=== PATIENT | male | born 1960 | race Caucasian/White ===

== ENCOUNTER 2016-09-24 10:03 | Outpatient (CLI) ==
[2016-04-19 03:33] VITALS: BMI 23.4
[2016-09-24 10:32] LABS: BASOPHILS # (AUTO) 0.1 K/uL (0-0.2); BASOPHILS % (AUTO) 0.7 % (0.0-3.0); EOSINOPHILS # (AUTO) 0.2 K/ul (0.0-0.7); EOSINOPHILS % (AUTO) 3.3 % (0.0-7.0); HEMATOCRIT 42.5 % (42.0-52.0); HEMOGLOBIN 14.4 g/dl (14.0-18.0); IMMATURE GRANULOCYTE % (AUTO) 0.3 % (0.0-5.0); LYMPHOCYTES # (AUTO) 2.3 K/uL (0.60-3.4); MEAN CORPUSCULAR HEMOGLOBIN 30.4 pg (27.0-31.0); MEAN CORPUSCULAR HGB CONC 33.9 (31.8-35.4); MEAN CORPUSCULAR VOLUME 89.9 fl (80.0-94.0); MONOCYTES # (AUTO) 0.5 K/uL (0.4-2.0); MONOCYTES % (AUTO) 6.7 (0-10); NEUTROPHILS # (AUTO) 4.1 K/ul (2.0-6.9); PLATELET COUNT 234 10^3/uL (140-440); RED BLOOD COUNT 4.73 10^6/ul (4.70-6.10); WHITE BLOOD COUNT 7.21 K/ul (4.2-10.2)
--- NOTE | 2016-09-24 11:00 | DI ---
EXAM: Chest two views HISTORY: Abnormal weight loss COMPARISON: CT chest 12/11/2015 TECHNIQUE: Two views of the chest were performed FINDINGS: There is ill-defined nodular density and/or infiltrate left upper lung that is new from 0 12/11/2015. Lungs are hyperinflated. Small bilateral pleural effusions with left basilar atelectasis and/or consolidation. There is no pleural effusion or pneumothorax. The heart is normal in size. The mediastinal contour is normal. There are no acute abnormalities of the bones. IMPRESSION: 1. Unexpected finding: New ill-defined nodular density and/or infiltrate left upper lung. CT ches t is recommended for further evaluation given patient's symptoms. 2. Small bilateral pleural effusions with left basilar atelectasis and/or pneumonia. 3. Chronic obstructive pulmonary disease
[2016-09-24 14:11] LABS: ALBUMIN 3.9 g/dL (3.4-5.0); ALBUMIN/GLOBULIN RATIO 1.03; ANION GAP 15.5; BILIRUBIN,TOTAL 0.62 mg/dL (0.00-1.20); BUN/CREATININE RATIO 17.05; CALCIUM 9.8 mg/dL (8.2-10.2); CREATININE 1.29 mg/dL (0.60-1.10); POTASSIUM 4.5 mmol/L (3.5-5.1); TOTAL PROTEIN 7.7 g/dL (6.4-8.2)
== END 2016-09-24 10:04 | disposition home or self-care (01) ==
LOC: RAD 10:03
PROVIDERS: ATTEND Family Medicine
DX: R63.4 Abnormal weight loss (principal)
CPT/HCPCS: 36415; 80053; 84439; 84443; 85025

== ENCOUNTER 2016-09-25 08:42 | Outpatient (CLI) ==
[2016-04-19 03:33] VITALS: BMI 23.4
--- NOTE | 2016-09-25 09:57 | CT ---
EXAM: CT of the chest without contrast History: Follow-up lung nodule. Comparison: Chest radiograph 09/24/2016, chest CT 12/11/2015 Technique: Multiplanar CT images through the thorax were obtained without the administration of IV contrast Findings: Heart size is within normal limits. Trace pericardial fluid. Coronary calcifications. Great vessels are grossly unremarkable on this noncontrast study. No pathologically enlarged axilla ry lymph nodes. Stable borderline enlarged pretracheal mediastinal lymph node. Calcified right dayo r lymph nodes. There is a new 1.2 cm x 0.8 cm spiculated nodule within the left lung apex with pleu ral tail. There is a new irregular pleural-based opacity within the left upper hemithorax measuring roughly 1.7 cm x 2.8 cm. No pneumothorax. Small partially loculated left pleural effusion and a n ew area of left lower lung atelectasis, infiltrate or scarring. Mild emphysema again noted. The within the visualized upper abdomen, calcified granulomas within the liver and spleen. Cholelit hiasis. No acute osseous abnormalities. Impression: 1. New spiculated left apical nodule and new spiculated left upper hemithorax pleural based opacity concerning for malignancy. Further evaluation recommended. 2. New small partially loculated left pleural effusion and a new area of left lower lung atelectasi s, infiltrate or scarring. 3. Mild emphysema again noted. 4. Cholelithiasis.
== END 2016-09-25 08:43 ==
LOC: RAD 08:42
PROVIDERS: ATTEND Family Medicine
DX: R91.1 Solitary pulmonary nodule (principal)

== ENCOUNTER 2016-09-30 13:21 | Outpatient (CLI) ==
[2016-04-19 03:33] VITALS: BMI 23.4
[2016-09-30 13:37] LABS: OCCULT BLOOD INTERNAL QC 1 INTERNAL QC VALID; OCCULT BLOOD INTERNAL QC 2 INTERNAL QC VALID; OCCULT BLOOD INTERNAL QC 3 INTERNAL QC VALID; OCCULT BLOOD SAMPLE 1 NEGATIVE (NEGATIVE); OCCULT BLOOD SAMPLE 2 NEGATIVE (NEGATIVE); OCCULT BLOOD SAMPLE 3 NO SPECIMEN RECEIVED (NEGATIVE)
== END 2016-09-30 13:22 | disposition home or self-care (01) ==
LOC: LAB 13:21
PROVIDERS: ATTEND Family Medicine
DX: R63.4 Abnormal weight loss (principal)
CPT/HCPCS: 82272

== ENCOUNTER 2017-06-18 16:36 | Emergency (ER) ==
[2017-06-18 16:41] VITALS: BP 149/87; TEMP 98.3; BMI 24.0
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
== END 2017-06-18 18:22 | disposition home or self-care (01) ==
LOC: ED 16:36
DX: M54.2 Cervicalgia (principal); R91.1 Solitary pulmonary nodule; M54.9 Dorsalgia, unspecified; W22.8XXA Striking against or struck by other objects, initial encounter; F17.210 Nicotine dependence, cigarettes, uncomplicated
CPT/HCPCS: 99283

== ENCOUNTER 2017-07-04 21:53 | Outpatient (CLI) ==
[2017-07-04 22:30] VITALS: BMI 24.7
== END 2017-07-04 21:54 | disposition left against medical advice (07) ==
LOC: AMBL 21:53
PROVIDERS: ATTEND Emergency Medicine
DX: S61.512A Laceration without foreign body of left wrist, initial encounter (principal); W01.198A Fall on same level from slipping, tripping and stumbling with subsequent striking against other object, initial encounter

== ENCOUNTER 2017-07-04 22:20 | Emergency (ER) ==
[2017-07-04] MEDS ORDERED: BOOSTRIX IM ONE (22:27)
[2017-07-04 22:30] VITALS: BP 157/94; TEMP 99.4; BMI 24.7
--- NOTE | 2017-07-04 22:33 | ED.PDOC ---
General ED Provider: Dr. ESEQUIEL BACH Chief Complaint: Laceration Stated Complaint: Fell in bath room, tripped and fell, hurting left shoulder and head, has cut to left wrist. Time Seen by Physician: 22:36 Primary Care Provider: LONG CAMPUZANO Nursing and Triage Documentation Reviewed and Agree: Yes Trauma/Injury Complaint Exam - Head Injury Complaint/Exam Location of Pain: Reports: Right, Left, Forehead Mechanism of Injury: Reports: Trauma Symptoms Are: Still present Initial Severity: Mild Current Severity: Mild Character: Reports: Dull Aggravating: Reports: None Alleviating: Reports: None Associated Signs and Symptoms: Denies: Confusion, Memory loss, Seizure, Epistaxis, Dental malocclusion, Neck pain, Nausea, Vomiting Loss of Consciousness: None SDH Risk Factors: Present: None Cervical Spine Injury Risk Factors: Present: None Related Surgical History: Reports: None Immobilization Removed Post Exam: No Head Injury Findings: Present: Normal findings Focal Weakness: Present: None Focal Sensory Loss: Present: None Gait: Normal Gag Reflex Present: Yes Finger to Nose: Normal Rhomberg Test Positive: No Babinski Sign: Negative Right, Negative Left Differential Diagnoses: Trauma Review of Systems - Review Of Systems Constitutional: Reports: Weakness Eyes: Reports: No symptoms Ears, Nose, Mouth, Throat: Reports: No symptoms Respiratory: Reports: No symptoms Cardiac: Reports: No symptoms GI: Reports: No symptoms : Reports: No symptoms Musculoskeletal: Reports: Joint pain Skin: Reports: No symptoms Neurological: Reports: No symptoms Endocrine: Reports: No symptoms Hematologic/Lymphatic: Reports: No symptoms All Other Systems: Reviewed and Negative Past Medical History - Past Medical History Previously Healthy: No Endocrine: Reports: Dyslipidemia Cardiovascular: Reports: CAD, [place], Hypertension Respiratory: Reports: None Hematological: Reports: None Gastrointestinal: Reports: None Genitourinary: Reports: None Neuro/Psych: Reports: None Musculoskeletal: Reports: None Cancer: Reports: None - Surgical History General Surgical History: Reports: Orthopedic - Family History Family History: Reports: Unknown - Social History Smoking Status: Current every day smoker Smoking Cessation Counseling Time: > 10 min Hx Substance Use: No Alcohol Screening: None Physical Exam - Physical Exam Appearance: Well-appearing, No pain distress, Well-nourished Eyes: ROBERTO, EOMI, Conjunctiva clear ENT: Ears normal, Nose normal, Oropharynx normal Respiratory: Airway patent, Breath sounds clear, Breath sounds equal, Respirations nonlabored Cardiovascular: RRR, Pulses normal, No rub, No murmur GI/: Soft, Nontender, No masses, Bowel sounds normal, No Organomegaly Musculoskeletal: Normal strength, ROM intact, No edema, No calf tenderness Skin: Warm, Dry, Normal color Neurological: Sensation intact, Motor intact, Reflexes intact, Cranial nerves intact, Alert, Oriented Psychiatric: Affect appropriate, Mood appropriate Critical Care Note - Critical Care Note Total Time (mins): 0 Course - Course Hematology/Chemistry: 07/04/17 22:51 07/04/17 22:51 Orders, Labs, Meds: Lab Review 07/04/17 11 22:51 22:51 WBC 7.67 RBC 4.05 L Hgb 13.0 L Hct 37.9 L MCV 93.6 MCH 32.1 H MCHC 34.3 RDW Coeff of Vinay 13.2 Plt Count 191 Immature Gran % (Auto) 0.4 Neut % (Auto) 49.4 Lymph % (Auto) 36.9 [place] % (Auto) 6.6 Eos % (Auto) 5.9 Baso % (Auto) 0.8 Immature Gran # (Auto) 0.0 Neut # 3.8 Lymph # 2.8 [place]ding # 0.5 Eos # 0.5 Baso # 0.1 Sodium 143 Potassium 3.8 Chloride 105 Carbon Dioxide 29 Anion Gap 12.8 BUN 17 Creatinine 1.37 H Estimated GFR (MDRD) 53.00 BUN/Creatinine Ratio 12.40 Glucose 79 Calcium 9.1 Total Bilirubin 0.52 AST 32 ALT 29 Alkaline Phosphatase 56 Total Protein 7.1 Albumin 3.5 Globulin 3.6 Albumin/Globulin Ratio 0.97 Orders Category Date Time Status CBC W/ AUTO DIFF Stat LAB 07/04/17 22:51 Completed CMP [COMPREHENSIVE METABOLIC PANEL] Stat LAB 07/04/17 22:51 Completed Diphth,Pertuss(Acell),Tet Vac [Boostrix] MEDS 07/04/17 22:27 Discontinued 0.5 ml IM .ONCE ONE CT HEAD W/O CONTRAST Stat RADS 07/04/17 22:27 Completed SHOULDER, LEFT MIN 2V Stat RADS 07/04/17 22:27 Completed WRIST, LEFT 3 VIEWS Stat RADS 07/04/17 22:27 Completed Medications Discontinued Medications Generic Name Dose Route Start Last Admin Trade Name Freq PRN Reason Stop Dose Admin Diphtheria/Pertussis/Tetanus Vacc 0.5 ml 07/04/17 22:27 07/04/17 22:35 Boostrix IM 07/04/17 22:28 0.5 ml .ONCE ONE Administration Vital Signs: Temp Pulse Resp BP Pulse Ox 07/04/17 22:20 99.4 F 67 20 157/94 H 97 Departure - Departure Time of Disposition: 19:57 Disposition: HOME SELF-CARE Discharge Problem: Laceration - injury Instructions: Fall Prevention for Older Adults (ED) Condition: Good Pt referred to PMD for follow-up: Yes Additional Instructions: keep f/u with PMD Fall risk discussed Allergies/Adverse Reactions: Allergies No Known Drug Allergies Adverse Reaction (Verified 07/04/17 22:29) Home Medications: Ambulatory Orders Clonazepam [Klonopin] 1 mg PO TID 12/11/15 Dabigatran Etexilate Mesylate [Pradaxa] 75 mg PO DAILY 12/11/15 Furosemide [Lasix Tab] 20 mg PO QDAC 12/11/15 Hydrocodone/Acetaminophen [Lortab 7.5-325 mg Tablet] 1 each PO TID PRN 12/11/15 Levetiracetam [Keppra] 500 mg PO BID 12/11/15 Disposition Discussed With: Patient, Family
[2017-07-04 22:54] LABS: BASOPHILS # (AUTO) 0.1 K/uL (0-0.2); BASOPHILS % (AUTO) 0.8 % (0.0-3.0); EOSINOPHILS # (AUTO) 0.5 K/ul (0.0-0.7); EOSINOPHILS % (AUTO) 5.9 % (0.0-7.0); HEMATOCRIT 37.9 % (42.0-52.0); IMMATURE GRANULOCYTE % (AUTO) 0.4 % (0.0-5.0); LYMPHOCYTES # (AUTO) 2.8 K/uL (0.60-3.4); LYMPHOCYTES % (AUTO) 36.9 (10.0-50.0); MEAN CORPUSCULAR HEMOGLOBIN 32.1 pg (27.0-31.0); MEAN CORPUSCULAR HGB CONC 34.3 (31.8-35.4); MEAN CORPUSCULAR VOLUME 93.6 fl (80.0-94.0); MONOCYTES # (AUTO) 0.5 K/uL (0.4-2.0); MONOCYTES % (AUTO) 6.6 (0-10); NEUTROPHILS # (AUTO) 3.8 K/ul (2.0-6.9); NEUTROPHILS % (AUTO) 49.4; PLATELET COUNT 191 10^3/uL (140-440); RED BLOOD COUNT 4.05 10^6/ul (4.70-6.10); WHITE BLOOD COUNT 7.67 K/ul (4.2-10.2)
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
--- NOTE | 2017-07-04 23:05 | DI ---
Exam: Left wrist three-view History: Injury and pain Findings / impression: No acute bony or articular abnormality of the left wrist. Negative exam.
--- NOTE | 2017-07-04 23:06 | DI ---
Exam: Shoulder three-view History: Injury and pain Findings / impression: No bony or articular abnormality of the left glenohumeral joint or acromiocla vicular joint. Negative exam.
[2017-07-04 23:13] LABS: ALBUMIN 3.5 g/dL (3.4-5.0); ALBUMIN/GLOBULIN RATIO 0.97; ANION GAP 12.8; BILIRUBIN,TOTAL 0.52 mg/dL (0.00-1.20); BUN/CREATININE RATIO 12.4; CALCIUM 9.1 mg/dL (8.2-10.2); CREATININE 1.37 mg/dL (0.60-1.10); POTASSIUM 3.8 mmol/L (3.5-5.1); TOTAL PROTEIN 7.1 g/dL (6.4-8.2)
== END 2017-07-04 23:20 | disposition home or self-care (01) ==
LOC: ED 22:20
DX: S61.512A Laceration without foreign body of left wrist, initial encounter (principal); S09.90XA Unspecified injury of head, initial encounter; S49.92XA Unspecified injury of left shoulder and upper arm, initial encounter; F17.210 Nicotine dependence, cigarettes, uncomplicated; W01.0XXA Fall on same level from slipping, tripping and stumbling without subsequent striking against object, initial encounter
CPT/HCPCS: 36415; 80053; 85025; 90471; 99283

== ENCOUNTER 2017-07-24 17:31 | Emergency (ER) ==
[2017-07-24 17:40] VITALS: BP 134/75; TEMP 98.3; BMI 24.8
[2017-07-24] MEDS ORDERED: ROCEPHIN IM STA (18:35)
[2017-07-24] MEDS ORDERED: DUONEB NEB STA (18:35)
[2017-07-24] MEDS ORDERED: LIDOCAINE HCL 1% SDV SUBCUT STA (18:35)
[2017-07-24] MEDS ORDERED: ZITHROMAX PO STA (18:36)
[2017-07-24] MEDS ORDERED: DECADRON 4 MG/ML SDV IM STA (18:36)
--- NOTE | 2017-07-24 18:39 | ED.PDOC ---
General ED Provider: Dr. KEVIN ARIAS Chief Complaint: Non-specific Complaint Stated Complaint: cough, wheez Time Seen by Physician: 17:40 Mode of Arrival: Walk-In Information Source: Patient Exam Limitations: No limitations Primary Care Provider: LONG CAMPUZANO Nursing and Triage Documentation Reviewed and Agree: Yes Respiratory Complaint Exam - Respiratory Complaint/Exam Symptoms Are: Still present Timing: Intermittent Initial Severity: Mild Current Severity: Mild Location: Throat Aggravating: Reports: None Alleviating: Reports: None Review of Systems - Review Of Systems Constitutional: Reports: No symptoms Eyes: Reports: No symptoms Ears, Nose, Mouth, Throat: Reports: No symptoms Respiratory: Reports: Cough Cardiac: Reports: No symptoms GI: Reports: No symptoms : Reports: No symptoms Musculoskeletal: Reports: No symptoms Skin: Reports: No symptoms Neurological: Reports: No symptoms Endocrine: Reports: No symptoms Hematologic/Lymphatic: Reports: No symptoms All Other Systems: Reviewed and Negative Past Medical History - Past Medical History Previously Healthy: No Endocrine: Reports: Dyslipidemia Cardiovascular: Reports: CAD, [place], Hypertension Respiratory: Reports: None Hematological: Reports: None Gastrointestinal: Reports: None Genitourinary: Reports: None Neuro/Psych: Reports: None Musculoskeletal: Reports: None Cancer: Reports: None - Surgical History General Surgical History: Reports: Orthopedic - Family History Family History: Reports: Unknown - Social History Smoking Status: Current every day smoker, Heavy tobacco smoker Hx Substance Use: No Alcohol Screening: None Physical Exam - Physical Exam Appearance: Well-appearing, No pain distress, Well-nourished Eyes: ROBERTO, EOMI, Conjunctiva clear ENT: Ears normal, Nose normal, Oropharynx normal Respiratory: Airway patent, Breath sounds clear, Breath sounds equal, Respirations nonlabored Cardiovascular: RRR, Pulses normal, No rub, No murmur GI/: Soft, Nontender, No masses, Bowel sounds normal, No Organomegaly Musculoskeletal: Normal strength, ROM intact, No edema, No calf tenderness Skin: Warm, Dry, Normal color Neurological: Sensation intact, Motor intact, Reflexes intact, Cranial nerves intact, Alert, Oriented Psychiatric: Affect appropriate, Mood appropriate Critical Care Note - Critical Care Note Total Time (mins): 0 Course - Course Orders, Labs, Meds: Orders Category Date Time Status EKG-(ED ONLY) Stat CARDIO 07/24/17 18:09 Ordered NEBULIZER TREATMENT Stat CARDIO 07/24/17 18:35 Ordered CBC W/ AUTO DIFF Stat LAB 07/24/17 18:22 Received COMPREHENSIVE METABOLIC PANEL Stat LAB 07/24/17 18:22 Received CREATINE KINASE Stat LAB 07/24/17 18:22 Received RAPID FLU A/B Stat LAB 07/24/17 18:09 Uncollected STREP SCREEN Stat LAB 07/24/17 18:09 Uncollected TROPONIN I Stat LAB 07/24/17 18:22 Received Azithromycin [Zithromax] MEDS 07/24/17 18:36 Stat 500 mg PO ONCE STA Ceftriaxone Sodium [Rocephin] MEDS 07/24/17 18:35 Stat 1 gm IM ONCE STA Dexamethasone 4 mg/ml Inj [Decadron 4 mg/ml Sdv] MEDS 07/24/17 18:36 Stat 4 mg IM ONCE STA Ipratropium/Albuterol Neb [Duoneb] MEDS 07/24/17 18:35 Stat 1 vial NEB ONCE STA Lidocaine HCl/Pf [Lidocaine HCl 1% Sdv] MEDS 07/24/17 18:35 Stat 5 ml SUBCUT ONCE STA CHEST, 2 VIEWS PA & LAT Stat RADS 07/24/17 18:08 Taken Medications Discontinued Medications Generic Name Dose Route Start Last Admin Trade Name Freq PRN Reason Stop Dose Admin Albuterol/Ipratropium 1 vial 07/24/17 18:35 Duoneb NEB 07/24/17 18:36 ONCE STA Azithromycin 500 mg 07/24/17 18:36 Zithromax PO 07/24/17 18:37 ONCE STA Ceftriaxone Sodium 1 gm 07/24/17 18:35 Rocephin IM 07/24/17 18:36 ONCE STA Dexamethasone Sodium Phosphate 4 mg 07/24/17 18:36 Decadron 4 Mg/Ml Sdv IM 07/24/17 18:37 ONCE STA Lidocaine HCl 5 ml 07/24/17 18:35 Lidocaine Hcl 1% Sdv SUBCUT 07/24/17 18:36 ONCE STA Vital Signs: Temp Pulse Resp BP Pulse Ox 07/24/17 17:32 98.3 F 61 20 134/75 97 Departure - Departure Time of Disposition: 18:39 Disposition: HOME SELF-CARE Discharge Problem: Bronchitis Instructions: Bronchospasm (ED), Wheezing (ED), How Your Lungs Work (ED), Acute Bronchitis (ED), COPD (Chronic Obstructive Pulmonary Disease) (ED), Chronic Bronchitis (ED) Condition: Good Pt referred to PMD for follow-up: Yes Allergies/Adverse Reactions: Allergies No Known Drug Allergies Adverse Reaction (Verified 07/04/17 22:29) Home Medications: Ambulatory Orders Clonazepam [Klonopin] 1 mg PO TID 12/11/15 Dabigatran Etexilate Mesylate [Pradaxa] 75 mg PO DAILY 12/11/15 Furosemide [Lasix Tab] 20 mg PO QDAC 12/11/15 Hydrocodone/Acetaminophen [Lortab 7.5-325 mg Tablet] 1 each PO TID PRN 12/11/15 Levetiracetam [Keppra] 500 mg PO BID 12/11/15
[2017-07-24 18:52] LABS: ALBUMIN 3.6 g/dL (3.4-5.0); ALBUMIN/GLOBULIN RATIO 0.97; ANION GAP 12.8; BILIRUBIN,TOTAL 0.34 mg/dL (0.00-1.20); BUN/CREATININE RATIO 13.12; CALCIUM 9.3 mg/dL (8.2-10.2); CREATININE 1.6 mg/dL (0.60-1.10); POTASSIUM 4.8 mmol/L (3.5-5.1); TOTAL PROTEIN 7.3 g/dL (6.4-8.2); TROPONIN I 0.037 ng/ml (0.0000-0.4000)
[2017-07-24 18:55] LABS: BASOPHILS # (AUTO) 0.1 K/uL (0-0.2); BASOPHILS % (AUTO) 0.7 % (0.0-3.0); EOSINOPHILS # (AUTO) 0.4 K/ul (0.0-0.7); EOSINOPHILS % (AUTO) 4.4 % (0.0-7.0); HEMATOCRIT 38.9 % (42.0-52.0); HEMOGLOBIN 13.1 g/dl (14.0-18.0); IMMATURE GRANULOCYTE % (AUTO) 0.4 % (0.0-5.0); LYMPHOCYTES # (AUTO) 2.7 K/uL (0.60-3.4); LYMPHOCYTES % (AUTO) 32.4 (10.0-50.0); MEAN CORPUSCULAR HEMOGLOBIN 31.4 pg (27.0-31.0); MEAN CORPUSCULAR HGB CONC 33.7 (31.8-35.4); MEAN CORPUSCULAR VOLUME 93.3 fl (80.0-94.0); MONOCYTES # (AUTO) 0.6 K/uL (0.4-2.0); MONOCYTES % (AUTO) 7.2 (0-10); NEUTROPHILS # (AUTO) 4.5 K/ul (2.0-6.9); NEUTROPHILS % (AUTO) 54.9; PLATELET COUNT 190 10^3/uL (140-440); RED BLOOD COUNT 4.17 10^6/ul (4.70-6.10); WHITE BLOOD COUNT 8.25 K/ul (4.2-10.2)
--- NOTE | 2017-07-24 18:58 | DI ---
EXAM: Chest two views HISTORY: Cough COMPARISON: 09/24/2016 TECHNIQUE: Two views of the chest were performed FINDINGS: No airspace consolidation. Subtle opacity in the left upper lobe appears decreased. Have blunting of the costophrenic angles. No pneumothorax. The heart is normal in size. The mediastinal contour is normal. There are no acute abnormalities of the bones. IMPRESSION: 1. Blunting costophrenic angles may represent small pleural effusions and/or pleural parenchymal sca rring. No airspace consolidation. 2. Subtle opacity in the left upper lobe appears decreased. Please see CT chest 09/25/2016. CT foll ow-up recommended. Report faxed
== END 2017-07-24 19:12 | disposition home or self-care (01) ==
LOC: ED 17:31
DX: J40 Bronchitis, not specified as acute or chronic (principal); I25.2 Old myocardial infarction; I10 Essential (primary) hypertension; I25.10 Atherosclerotic heart disease of native coronary artery without angina pectoris; F17.210 Nicotine dependence, cigarettes, uncomplicated; E78.5 Hyperlipidemia, unspecified
CPT/HCPCS: 36415; 80053; 82550; 84484; 85025; 93005; 93010; 94640; 96372; 99283

== ENCOUNTER 2017-07-28 10:41 | Outpatient (CLI) ==
[2017-07-28 11:07] LABS: BASOPHILS # (AUTO) 0.1 K/uL (0-0.2); BASOPHILS % (AUTO) 0.6 % (0.0-3.0); EOSINOPHILS # (AUTO) 0.1 K/ul (0.0-0.7); EOSINOPHILS % (AUTO) 1.5 % (0.0-7.0); HEMATOCRIT 38.1 % (42.0-52.0); HEMOGLOBIN 12.9 g/dl (14.0-18.0); IMMATURE GRANULOCYTE % (AUTO) 0.7 % (0.0-5.0); LYMPHOCYTES # (AUTO) 1.5 K/uL (0.60-3.4); LYMPHOCYTES % (AUTO) 17.1 (10.0-50.0); MEAN CORPUSCULAR HEMOGLOBIN 31.7 pg (27.0-31.0); MEAN CORPUSCULAR HGB CONC 33.9 (31.8-35.4); MEAN CORPUSCULAR VOLUME 93.6 fl (80.0-94.0); MONOCYTES # (AUTO) 0.6 K/uL (0.4-2.0); MONOCYTES % (AUTO) 6.6 (0-10); NEUTROPHILS # (AUTO) 6.5 K/ul (2.0-6.9); NEUTROPHILS % (AUTO) 73.5; PLATELET COUNT 157 10^3/uL (140-440); RED BLOOD COUNT 4.07 10^6/ul (4.70-6.10); WHITE BLOOD COUNT 8.83 K/ul (4.2-10.2)
[2017-07-28 11:46] LABS: ALBUMIN 3.2 g/dL (3.4-5.0); ALBUMIN/GLOBULIN RATIO 0.89; ANION GAP 10.4; BILIRUBIN,TOTAL 0.6 mg/dL (0.00-1.20); BUN/CREATININE RATIO 9.35; CALCIUM 9.3 mg/dL (8.2-10.2); CHOL/HDL RATIO 3.5 (4.5-6.4); CREATININE 1.39 mg/dL (0.60-1.10); POTASSIUM 4.4 mmol/L (3.5-5.1); TOTAL PROTEIN 6.8 g/dL (6.4-8.2)
== END 2017-07-28 10:42 | disposition home or self-care (01) ==
LOC: LAB 10:41
PROVIDERS: ATTEND Family Medicine
DX: I10 Essential (primary) hypertension (principal); Z12.5 Encounter for screening for malignant neoplasm of prostate
CPT/HCPCS: 36415; 80053; 80061; 85025

== ENCOUNTER 2017-11-12 21:27 | Emergency (ER) ==
[2017-11-12] MEDS ORDERED: BACTRIM DS 800/160 MG PO STA (21:47)
--- NOTE | 2017-11-12 21:48 | ED.PDOC ---
General ED Provider: Dr. LONG ANG Chief Complaint: Bite Stated Complaint: Patient is a 57 year old male who comes to the ER with left forearm paiin. He also states he ran out of his medications and has had several heart attacks in the past. He was admitted recently for possible stroke but signed out AMA. States he has problems with balance each time he tries to walk. He states that he has been having chest pains off an on the last time was yesterday. Denies any chest pain at this time. State has renal failure too and that his urine has turned dark. He also states his doctor Fired him for missing 3 appointment in a raw. Time Seen by Physician: 22:00 Mode of Arrival: Walk-In Information Source: Patient Exam Limitations: No limitations Seen Within Last 72 Hours for Same Complaint By: ED Nursing and Triage Documentation Reviewed and Agree: Yes Reviewed sepsis parameters & appropriate labs ordered?: No System Inflammatory Response Syndrome: Not Applicable Sepsis Protocol: For patient's 13 years and over: Temp is 96.8 and below OR 101 and greater Pulse >90 BPM Resp >20/minute Acutely Altered Mental Status Are patient's symptoms suggestive of a new infection, such as: -Pneumonia -Skin, Soft Tissue -Endocarditis -UTI -Bone, Joint Infection -Implantable Device -Acute Abdominal Infection -Wound Infection -Meningitis -Blood Stream Catheter Infection -Unknown System Inflammatory Response Syndrome: Not Applicable Skin Complaint Exam - Skin/Soft Tissue Complaint/Exam Onset/Duration: 3 days Symptoms Are: Still present Timing: Constant Initial Severity: Moderate Current Severity: Mild Character: Reports: Redness, Swelling, Raised, Painful Aggravating: Reports: Touch Associated Signs and Symptoms: Reports: Tenderness, Red streaks Related History: Reports: Insect bite/sting Recent Exposure to Others w/Similar Symptoms: No Skin Findings: Present: Skin lesion (Left forarm ) Joint Tenderness Present: No Differential Diagnoses: Abscess, Cellulitis Review of Systems - Review Of Systems Constitutional: Reports: No symptoms Eyes: Reports: No symptoms Ears, Nose, Mouth, Throat: Reports: No symptoms Respiratory: Reports: No symptoms Cardiac: Reports: No symptoms. Denies: Chest pain GI: Reports: No symptoms : Reports: No symptoms Musculoskeletal: Reports: No symptoms Skin: Reports: Lesions (left forearm ) Neurological: Reports: Other (balance problems ) Endocrine: Reports: No symptoms Hematologic/Lymphatic: Reports: No symptoms All Other Systems: Reviewed and Negative Past Medical History - Past Medical History Previously Healthy: No Endocrine: Reports: Dyslipidemia Cardiovascular: Reports: CAD, IA, Hypertension, CHF Respiratory: Reports: Asthma Hematological: Reports: None Gastrointestinal: Reports: GERD, Other (hepatitis C) Genitourinary: Reports: CKD Neuro/Psych: Reports: Migraine, Seizure, Depression, Schizophrenia Musculoskeletal: Reports: Arthritis, Back Pain Cancer: Reports: None - Surgical History General Surgical History: Reports: Orthopedic - Family History Family History: Reports: Unknown - Social History Smoking Status: Current every day smoker, Heavy tobacco smoker Hx Substance Use: Yes ("ALCOHOL AND DRUGS") Alcohol Screening: None Lives: With family - Immunizations Tetanus Shot up to Date: (UNKNOWN) Physical Exam - Physical Exam Appearance: Well-appearing Ill-appearing: Mild Pain Distress: Mild Eyes: ROBERTO, EOMI, Conjunctiva clear ENT: Ears normal, Nose normal, Oropharynx normal Neck: Supple Respiratory: Airway patent, Breath sounds clear, Breath sounds equal, Respirations nonlabored Cardiovascular: RRR, Pulses normal, No rub, No murmur GI/: Soft, Nontender, No masses, Bowel sounds normal, No Organomegaly Musculoskeletal: Normal strength, ROM intact, No edema, No calf tenderness Neurological: Sensation intact Psychiatric: Anxious Interpretation - Radiology Interpretation Radiology Interpretation By: Radiologist Radiology Results: No acute changes (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) Exam Interpreted: CT Scan - EKG Interpretation Time of EKG #1: 22:19 Rate: Normal Rhythm: Sinus Ectopy: None [place]: Left ST Segment: Normal Interpretation: old inferior infarct EKG Comparison: Other (Incomplete BBB) Critical Care Note - Critical Care Note Total Time (mins): 0 Course - Course Hematology/Chemistry: 11/12/17 22:15 11/12/17 22:25 Orders, Labs, Meds: Lab Review 11/12/17 11/12/17 11/12/17 22:15 22:25 22:45 WBC 6.06 RBC 4.43 L Hgb 14.0 Hct 40.3 L MCV 91.0 MCH 31.6 H MCHC 34.7 RDW Coeff of Vinay 13.2 Plt Count 133 L Immature Gran % (Auto) 0.3 Neut % (Auto) 43.2 Lymph % (Auto) 39.9 [place] % (Auto) 11.6 H Eos % (Auto) 4.3 Baso % (Auto) 0.7 Immature Gran # (Auto) 0.0 Neut # (Auto) 2.6 Lymph # (Auto) 2.4 [place] # (Auto) 0.7 Eos # (Auto) 0.3 Baso # (Auto) 0.0 Sodium 138 Potassium 4.4 Chloride 101 Carbon Dioxide 30 Anion Gap 11.4 BUN 18 Creatinine 1.45 H Estimated GFR (MDRD) 50.00 BUN/Creatinine Ratio 12.41 Glucose 73 Calcium 9.3 Total Bilirubin 0.5 AST 43 H ALT 39 Alkaline Phosphatase 46 L Total Creatine Kinase 24 Troponin I 0.0190 Total Protein 7.1 Albumin 3.6 Globulin 3.5 Albumin/Globulin Ratio 1.03 Urine Color Yellow Urine Clarity Clear Urine pH 7.5 Ur Specific [place] 1.015 Urine Protein Negative Urine Glucose (UA) Negative Urine Ketones Negative Urine Blood Negative Urine Nitrite Negative Urine Bilirubin Negative Urine Urobilinogen 0.2 Ur Leukocyte Esterase Negative Orders Category Date Time Status CBC W/ AUTO DIFF Stat LAB 11/12/17 22:15 Completed COMPREHENSIVE METABOLIC PANEL Stat LAB 11/12/17 22:25 Completed CREATINE KINASE Stat LAB 11/12/17 22:25 Completed TROPONIN I Stat LAB 11/12/17 22:25 Completed UA [URINALYSIS C & S IF INDICATED] Stat LAB 11/12/17 22:45 Completed Sulfamethoxazole/Trimethoprim [Bactrim Ds 800/160 mg] MEDS 11/12/17 21:47 Discontinued 1 tab PO ONCE STA CT HEAD W/O CONTRAST Stat RADS 11/12/17 22:17 Completed Medications Discontinued Medications Generic Name Dose Route Start Last Admin Trade Name Juhi PRN Reason Stop Dose Admin Trimethoprim/Sulfamethoxazole 1 tab 11/12/17 21:47 11/12/17 22:07 Bactrim Ds 800/160 Mg PO 11/12/17 21:48 1 tab ONCE STA Administration Vital Signs: Temp Pulse Resp BP Pulse Ox 11/12/17 21:29 98.6 F 86 20 161/87 H 98 Departure - Departure Time of Disposition: 23:20 Disposition: HOME SELF-CARE Discharge Problem: Folliculitis, Chest pain of uncertain etiology Instructions: Effects of Smoking, Alcohol, and Medicines on (ED) , How to Stop Smoking (ED), Folliculitis (ED) Condition: Stable Pt referred to PMD for follow-up: Yes IPMP verified?: No Additional Instructions: Follow up with the clinic in the morning to establish care. Take antibiotics twice a day until gone. Quit smoking. Prescriptions: Sulfamethoxazole/Trimethoprim [Bactrim Ds Tablet] 1 each PO BID #20 tablet Allergies/Adverse Reactions: Allergies No Known Drug Allergies Adverse Reaction (Verified 11/12/17 21:40) Home Medications: Ambulatory Orders Clonazepam [Klonopin] 1 mg PO TID 12/11/15 Dabigatran Etexilate Mesylate [Pradaxa] 75 mg PO DAILY 12/11/15 Furosemide [Lasix Tab] 20 mg PO QDAC 12/11/15 Hydrocodone/Acetaminophen [Lortab 7.5-325 mg Tablet] 1 each PO TID PRN 12/11/15 Levetiracetam [Keppra] 500 mg PO BID 12/11/15 Sulfamethoxazole/Trimethoprim [Bactrim Ds Tablet] 1 each PO BID #20 tablet 11/12 Disposition Discussed With: Patient, Family
[2017-11-12 21:57] VITALS: BP 161/87; TEMP 98.6; BMI 24.5
--- NOTE | 2017-11-12 23:00 | CT ---
EXAM: CT head without contrast. HISTORY: Dizziness. PROCEDURE: Contiguous axial CT images of the head without contrast. FINDINGS: Comparison made with CT of 07/04/2017. There is diffuse cerebral atrophy. There are old le ft frontal, left parietal, left occipital and right cerebellar infarcts. No evidence of new large ves mt infarct. No intracranial hemorrhage. There are chronic small vessel ischemic changes in the whit e matter. No extra-axial fluid collection. There is opacification of the left mastoid air cells. The right mastoid air cells are normal in appearance. There is minimal mucosal thickening in the paranas al sinuses. Impression: No intracranial hemorrhage or evidence of new large vessel infarct. 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 Chronic small vessel ischemic changes. Diffuse cerebral atrophy. Paranasal sinusitis and left mastoiditis.
== END 2017-11-12 23:40 | disposition home or self-care (01) ==
LOC: ED 21:27
DX: L73.9 Follicular disorder, unspecified (principal); R07.9 Chest pain, unspecified; R26.89 Other abnormalities of gait and mobility; I25.2 Old myocardial infarction; N18.9 Chronic kidney disease, unspecified; I25.10 Atherosclerotic heart disease of native coronary artery without angina pectoris; I10 Essential (primary) hypertension; F17.210 Nicotine dependence, cigarettes, uncomplicated; Z91.14 Patient's other noncompliance with medication regimen; Z79.899 Other long term (current) drug therapy
CPT/HCPCS: 36415; 80053; 81001; 82550; 84484; 85025; 99283

== ENCOUNTER 2017-12-07 06:54 | Outpatient (CLI) | END 2017-12-07 06:55 | disposition short-term general hospital (02) | LOC: AMBL 06:54 | PROVIDERS: ATTEND Internal Medicine Geriatric Medicine | DX: R56.9 Unspecified convulsions (principal) ==